=== PATIENT | female | born 1960 | race Caucasian/White ===

== ENCOUNTER 2022-11-03 12:24 | Emergency (ER) | payer BC ==
[~2022-11-03 12:24] MED LIST: Iopamidol 300 61% 100 ML VIAL FS ONE
[2022-11-03 13:16] LABS: #Eosinphils 0.2 10x3/uL (0.0-0.5); #Monocytes 0.7 10x3/uL (0.0-1.1); %Basophils 0.4 % (0.0-2.0); %Eosinophils 2.9 % (0.0-6.0); %Lymphocytes 31.4 % (18.0-47.0); %Monocytes 11.9 % (0.0-10.0); %Neutrophils 53.2 % (40.0-75.0); Hemoglobin 13.4 g/dL (12.0-15.5); Mean Corpuscular HGB CONC 33.8 g/dL (32.0-36.0); Mean Corpuscular Hemoglobin 34.1 pg (27.0-33.0); Mean Platelet Volume 11.5 fl (7.4-10.4); Platelet Count 190 10x3/uL (150-450); RBC Distribution Width 14.8 % (11.5-14.5); Red Blood Cell (RBC) Count 3.93 10x6/uL (3.90-5.03); White Blood Cell (WBC) Count 5.5 10x3/uL (3.5-10.5)
[2022-11-03 13:36] LABS: Bilirubin Neg (Negative); Blood, Urine Negative (Negative); Glucose, Urine (Dipstick) Normal (Negative); Ketone, Urine Negative (Negative); Leukocyte Negative (Negative); Nitrite Negative (Negative); Protein, Urine (Dipstick) Negative (Neg-Trace); Urobilinogen Normal mg/dL (Less than 2)
[2022-11-03 13:37] LABS: ALT (SGPT) 22 U/L (8-55); AST (SGOT) 22 U/L (5-34); Albumin 4.5 g/dL (3.5-5.0); Alkaline Phosphatase 50 U/L (40-110); Anion Gap 14 mmol/L (10-20); BUN (Urea Nitrogen) 16 mg/dL (9.8-20.1); Bilirubin, Total 0.4 mg/dL (0.2-1.2); Calc. Creatinine Clearance 0 mL/min (70-130); Calcium 9.9 mg/dL (7.8-10.44); Carbon Dioxide 26 mmol/L (22-29); Chloride 102 mmol/L (98-107); Estimated GFR 87; Globulin 2.8 g/dL (2.4-3.5); Glucose 107 mg/dL (70-105); Protein, Total 7.3 g/dL (6.0-8.3); Sodium 138 mmol/L (136-145)
[2022-11-03 13:48] LABS: Clarity Hazy (Clear)
[2022-11-03] MEDS ORDERED: Ketorolac Tromethamine 30 MG/ML VIAL ONE (16:06)
== END 2022-11-03 16:39 | disposition home or self-care (01) ==
LOC: CSHERS 12:24
DX: K63.89 Other specified diseases of intestine (principal)
CPT/HCPCS: 74177; 80053; 81003; 83690; 85025; 96361; 96374; J1885; Q9967